=== PATIENT | female | born 1935 | race American Indian/Alaskan Native ===

== ENCOUNTER 2018-04-03 23:27 | Inpatient (IN) | payer MEDICARE, BC ==
--- NOTE | 2018-04-03 23:33 | C.PDOC ---
History Of Present Illness patient was brought in by daughters for seizure activity. Pt has a staring episode-non responsive to verbal commands, and anothe episode sith some "shaking" after which she sustained a small bite to tip of tongue. Patient is confused at baseline due to her dementia. No f/c/n/v. Pleasant, cooperative Time Seen by Provider: 04/03/18 23:32 Chief Complaint (Nursing): Altered Mental Status History Per: Family History/Exam Limitations: None Onset/Duration Of Symptoms: Hrs Onset Of Symptoms: <3 Hours Current Symptoms Are (Timing): Gone Usual Baseline: Alert Confused Exacerbating Factor(s): Other (seizure, dementia) Speech Is: Normal Severity: None Recent travel outside of the [place]: No Additional History Per: Family Associated Symptoms: Seizure. denies: Fever, Chills, Sweating, Falling, Weakness Past Medical History Reviewed: Historical Data, Nursing Documentation, Vital Signs - Medical History PMH: Dementia, HTN, Hypothyroidism, Osteoporosis Denies: Chronic Kidney Disease Family History: States: No Known Family Hx - Social History Hx Tobacco Use: No Hx Alcohol Use: No Hx Substance Use: No - Immunization History Hx Tetanus Toxoid Vaccination: No Hx Influenza Vaccination: No Hx Pneumococcal Vaccination: No Review Of Systems Constitutional: Negative for: Fever, Chills Eyes: Negative for: Vision Change ENT: Negative for: Throat Pain Cardiovascular: Negative for: Chest Pain Respiratory: Negative for: Shortness of Breath Gastrointestinal: Negative for: Nausea, Vomiting, Abdominal Pain Genitourinary: Negative for: Dysuria Musculoskeletal: Negative for: Back Pain Skin: Negative for: Rash Neurological: Positive for: Seizures Psych: Negative for: Anxiety Physical Exam - Physical Exam Appears: Non-toxic, No Acute Distress Skin: Warm, Dry Head: Normacephalic Eye(s): bilateral: Normal Inspection Oral Mucosa: Moist Tongue: Bite (tip. a.2 cm hematoma) Neck: Supple Chest: Symmetrical, Other (cabg scar) Cardiovascular: Rhythm Regular Respiratory: No Rales, No Rhonchi, No Wheezing Gastrointestinal/Abdominal: Soft, No Tenderness, No Distention Back: Normal Inspection Extremity: Normal ROM Extremity: Bilateral: Atraumatic, Normal Color And Temperature, Normal ROM Pulses: Left Dorsalis Pedis: Normal, Right Dorsalis Pedis: Normal Neurological/Psych: Normal Speech, Normal Motor, Other (aaox2) Disoriented To: Place Gait: Steady ED Course And Treatment - Laboratory Results Result Diagrams: 04/04/18 00:19 04/04/18 00:19 ECG: Interpreted By Me, Viewed By Me ECG Rhythm: Sinus Rhythm (64), 1st Degree HB, R BBB, Nonspecific Changes O2 Sat by Pulse Oximetry: 97 Pulse Ox Interpretation: Normal - Radiology CXR: Interpreted by Me, Viewed By Me CXR Interpretation: Yes: Other (cabg). No: Infiltrates, Fracture, Pnemothorax NIHSS Stroke Scale - Date/Time Evaluation Performed Date Performed: 04/03/18 Time Performed: 23:30 When Was NIHSS Performed: Baseline - How Severe is the Stoke Level of Consciousness: 0=Alert LOC to Questions: 0=Both comments correct LOC to commands: 0=Obeys both correctly Best Gaze: 0=Normal Visual: 0=No visual loss Facial: 0=Normal Motor Arm - Left: 0=No drift Motor Arm - Right: 0=No drift Motor Leg - Left: 0=No drift Motor Leg - Right: 0=No drift Limb Ataxia: 0=Absent Sensory: 0=Normal Best Language: 0=No aphasia Dysarthia: 0=Normal articulation Extinction & Inattention (Neglect): 0=Normal, no object Score: [address] Donovan Ponce Comment: accepted the pt on his service and took over the care at 1:38AM Doctor Will See Patient In The: Hospital Counseled Patient/Family Regarding: Studies Performed, Diagnosis - Disposition Disposition: HOSPITALIZED Disposition Time: 23:32 Condition: FAIR Forms: [facility] (Arabic) - POA Present On Arrival: None - Clinical Impression Clinical Impression: New onset seizure, Dementia Decision To Admit - Pt Status Changed To: Hospital Disposition Of: Inpatient - Admit Certification Admit to Inpatient:: After my assessment, the patient will require hospitalization for at least two midnights. This is because of the severity of symptoms shown, intensity of services needed, and/or the medical risk in this patient being treated as an outpatient. - InPatient: Physician Admission Certification:: After my assessment, the patient will require hospitalization for at least two midnights. This is because of the severity of symptoms shown, intensity of services needed, and/or the medical risk in this patient being treated as an outpatient. - . Bed Request Type: Regular Admitting Physician: Donovan Ponce Patient Diagnosis: New onset seizure, Dementia
[2018-04-04 00:25] LABS: BASO # 0.1 K/uL (0.0-0.2); BASO % 0.7 % (0.0-2.0); EOS # 0.1 K/uL (0.0-0.7); EOS % 1.1 % (0.0-4.0); HEMOGLOBIN 11.7 g/dL (11.0-16.0); LYMPH # 3.5 K/uL (1.0-4.3); LYMPH % 34.5 % (20.0-40.0); MEAN CELL VOLUME 89.1 fL (81.0-99.0); MEAN CORPUSCULAR HEMOGLOBIN 29.3 pg (27.0-31.0); MEAN CORPUSCULAR HGB CONC 32.9 g/dL (33.0-37.0); MEAN PLATELET VOLUME 8.3 fL (7.2-11.7); MONO % 9.5 % (0.0-10.0); NEUT # 5.4 K/uL (1.8-7.0); NEUT % 54.2 % (50.0-75.0); RBC 3.98 Mil/uL (3.80-5.20)
[2018-04-04 00:31] LABS: PROTHROMBIN TIME 11.2 SECONDS (9.7-12.2)
[2018-04-04 00:37] LABS: ALB/GLOB RATIO 1.4 (1.0-2.1); ALBUMIN 4.4 g/dL (3.5-5.0); CALCIUM 9.4 mg/dl (8.6-10.4)
[2018-04-04 00:45] LABS: VENOUS BLOOD GAS BASE EXCESS 3.2 mmol/L (0.0-2.0); VENOUS BLOOD GAS PCO2 53 mmHg (40-60); VENOUS BLOOD GAS PO2 32 mm/Hg (30-55); VENOUS BLOOD PH 7.36 (7.32-7.43)
[2018-04-04 06:41] LABS: SQUAMOUS EPITHIAL 1 /hpf (0-5); URINE BACTERIA RARE (<OCC); URINE BILIRUBIN NEGATIVE (NEGATIVE); URINE BLOOD NEGATIVE (NEGATIVE); URINE CLARITY Clear (Clear); URINE COLOR Straw (YELLOW); URINE GLUCOSE (UA) NORMAL (Normal); URINE LEUKOCYTE ESTERASE NEG Leu/uL (Negative); URINE PROTEIN NEGATIVE (NEGATIVE); URINE UROBILINOGEN NORMAL mg/dL (0.2-1.0)
[2018-04-04] MEDS: Dextrose 5%/0.45% NS 1,000 ML IV SCH (06:56)
--- NOTE | 2018-04-04 08:40 | CT ---
Date of service: 04/03/2018 PROCEDURE: CT HEAD WITHOUT CONTRAST. HISTORY: new onset seizure COMPARISON: 06/15/2016 TECHNIQUE: Axial computed tomography images were obtained through the head/brain without intravenous contrast. Radiation dose: Total exam DLP = 1937.69 mGy-cm. This CT exam was performed using one or more of the following dose reduction techniques: Automated exposure control, adjustment of the mA and/or kV according to patient size, and/or use of iterative reconstruction technique. FINDINGS: HEMORRHAGE: No intracranial hemorrhage. BRAIN: No mass effect or edema. Mild diffuse atrophy. Moderate chronic periventricular and deep/subcortical white matter lucency consistent with age related microvascular ischemic change. Old right basal ganglia lacunar infarct. No evidence of acute infarct. VENTRICLES: Unremarkable. No hydrocephalus. CALVARIUM: Unremarkable. PARANASAL SINUSES: Unremarkable as visualized. No significant inflammatory changes. MASTOID AIR CELLS: Unremarkable as visualized. No inflammatory changes. OTHER FINDINGS: None. IMPRESSION: No intracranial mass, hemorrhage or evidence of acute infarct. Chronic microvascular white matter ischemic change. Old right basal ganglia lacunar infarct. No interval change. The preliminary findings for this examination were reported by [facility] Radiology at 12:24 a.m. on 04/04/2018. There is concurrence of this report with the preliminary findings.
--- NOTE | 2018-04-04 09:18 | RAD ---
Date of service: 04/03/2018 HISTORY: SOB COMPARISON: Comparison made with prior chest radiograph dated 03/07/2014.. FINDINGS: LUNGS: No active pulmonary disease. PLEURA: No significant pleural effusion identified, no pneumothorax apparent. CARDIOVASCULAR: Aortic atherosclerotic calcification present. Suspect mitral valve calcification.. Vascular calcifications involving the great vessels seen in the upper mediastinum bilaterally. Mild cardiomegaly. Sternotomy wires and CABG clips again noted. No pulmonary vascular congestion. OSSEOUS STRUCTURES: No significant abnormalities. VISUALIZED UPPER ABDOMEN: Normal. OTHER FINDINGS: None. IMPRESSION: No acute consolidation..
[2018-04-04] MEDS ORDERED: CALCIUM CARBONATE PO SCH (10:00)
[2018-04-04] MEDS ORDERED: LEVOTHYROXINE PO SCH (10:00)
[2018-04-04] MEDS ORDERED: PLAVIX 75 MG PO SCH (10:00)
[2018-04-04] MEDS ORDERED: Home Med 1 UNIT (Simvastatin [Simvastatin] 40 MG) PO SCH (10:00)
[2018-04-04] MEDS ORDERED: VITAMIN D3 PO SCH (10:00)
[2018-04-04] MEDS: Pantoprazole 20 mg EC Tab PO SCH (10:38)
[2018-04-04] MEDS: Levothyroxine 75 MCG TAB PO SCH (11:21)
[2018-04-04] MEDS: Calcium-Vit D 500 mg-200 Units Tab UD PO SCH (11:21)
--- NOTE | 2018-04-04 11:46 | CARD ---
APPROVED REPORT Date of service: 04/04/2018 EKG Measurement Heart [id number] NC 250P24 [id number] <Conclusion> Sinus rhythm with 1st degree AV block Incomplete right bundle branch block Left ventricular hypertrophy with repolarization abnormality Abnormal ECG
[2018-04-04 15:45] VITALS: RESP 20
[2018-04-05] MEDS: Dextrose 5%/0.45% NS 1,000 ML IV SCH ×2 (04:24→18:20)
--- NOTE | 2018-04-05 05:53 | HP ---
HISTORY OF PRESENT ILLNESS: This is an 82-year-old female, who was brought in with a history of possible seizures, she had an episode of 2 to 3 times in the past. She has a history of longstanding hypertension, coronary artery disease, peripheral artery disease, and carotid disease. She was in the usual state of health up until a few days ago when she had 2 or 3 episodes of seizures-like activity and brought in subsequently by the daughter to the emergency room. She bit her tongue once. She had two episodes, [facility]. PERSONAL HISTORY: She does not smoke, does not drink. PAST MEDICAL HISTORY: History of CABG at [facility], admitted for uncontrolled hypertension and unsteady gait in 2016 in [facility], bypass was done in 2013. PTCA of both femoral was done by Dr. Santana in 2010. FAMILY HISTORY: Positive for hypertension, both daughters have it. MEDICATIONS AT HOME: Include Aricept 10 mg one a day, Ecotrin once a day, Plavix 75 mg one a day, multivitamin, Lasix 20 mg one a day, Cozaar 25 mg one a day, memantine 10 mg, metoprolol tartrate 25 mg once a day, Protonix along with Synthroid 75 mcg, and Zocor 40 mg p.o. once a day. ALLERGIES: DENIED. SOCIAL HISTORY: She does not smoke. No drugs. No alcohol. PHYSICAL EXAMINATION: GENERAL: Shows elderly female, who is conscious, alert with periods of occasional confusion in between, but she recognizes me and her daughter, Amy, who is at the bedside. VITAL SIGNS: She is 130 pounds, height is 5 feet 1 inch. Blood pressure is 128/70, heart rate of 68 and regular, and respiratory rate of 14, afebrile. HEENT: Head is normocephalic. Eyes: No pallor, no icterus. NECK: Supple. No thyroid enlargement. No lymphadenopathy. No carotid bruits. LUNGS: Clear to auscultation. HEART: PMI is normal. S1 and S2 are normal. Systolic ejection murmur grade 2/6 in mitral area. ABDOMEN: Soft, nontender. EXTREMITIES: No cyanosis, clubbing, or edema. Distal pulses are intact. NEUROLOGIC: She is awake, alert, and oriented x3. She is aware she is in the hospital. She knows my name. MUSCULOSKELETAL: Arthritis involving the hands. SKIN: Scar of CABG in the mid sternal line. Also, scar of previous surgery in the right leg. PSYCHIATRIC: No evidence of depression at this point. LABORATORY DATA: EKG: Sinus bradycardia, otherwise normal. Routine labs are acceptable. CAT scan of the head was unremarkable. ASSESSMENT: This is an 83-year-old female with history of hypertension, diffuse atherosclerosis, coronary artery bypass grafting, has presented with seizures. PLAN: Plan at this point is to hydrate. Her BUN is 30, and we will get neurological consultation. MRA of the head, may need EEG. Care of plan was explained to the patient's daughter, who is at the bedside. Donovan Ponce MD
[2018-04-05] MEDS: Levothyroxine 75 MCG TAB PO SCH (06:50)
[2018-04-05] MEDS: Pantoprazole 20 mg EC Tab PO SCH (09:20)
[2018-04-05] MEDS: Calcium-Vit D 500 mg-200 Units Tab UD PO SCH (09:21)
--- NOTE | 2018-04-05 12:18 | CP.PCM.PN ---
Subjective - Date & Time of Evaluation Date of Evaluation: 04/05/18 Time of Evaluation: 12:17 - Subjective Subjective: ok.no further bseuizer activities Objective - Vital Signs/Intake and Output Vital Signs (last 24 hours): Temp Pulse Resp BP Pulse Ox 97.8 F 57 L 20 153/61 H 98 04/05/18 08:18 04/05/18 11:13 04/05/18 08:18 04/05/18 11:13 04/05/18 08:18 - Medications Medications: Current Medications Aspirin (Aspirin Chewable) 81 mg PO DAILY [facility] Last Admin: 04/05/18 09:20 Dose: 81 mg Calcium/Vitamin D (Oyster Shell Calcium/Vitamin D 500 Mg-200 Iu) 1 tab PO DAILY [facility] Last Admin: 04/05/18 09:21 Dose: 1 tab Clopidogrel Bisulfate (Plavix) 75 mg PO DAILY [facility] Last Admin: 04/05/18 09:21 Dose: 75 mg Donepezil HCl (Aricept) 10 mg PO DAILY [facility] Last Admin: 04/05/18 09:20 Dose: 10 mg Furosemide (Lasix) 20 mg PO MWF [facility] Last Admin: 04/04/18 10:37 Dose: 20 mg Heparin Sodium (Porcine) (Heparin) 5,000 units SC Q12 [facility] Last Admin: 04/05/18 09:21 Dose: 5,000 units Dextrose/Sodium Chloride (Dextrose 5%/0.45% Ns 1000 Ml) 1,000 mls @ 50 mls/hr IV .Q20H [facility] Last Admin: 04/05/18 04:24 Dose: 50 mls/hr Levothyroxine Sodium (Synthroid) 75 mcg PO DAILY@0630 [facility] Last Admin: 04/05/18 06:50 Dose: 75 mcg Losartan Potassium (Cozaar) 25 mg PO DAILY [facility] Last Admin: 04/05/18 09:20 Dose: 25 mg Memantine (Namenda) 10 mg PO BID [facility] Last Admin: 04/05/18 09:20 Dose: 10 mg Metoprolol Tartrate (Lopressor) 25 mg PO DAILY [facility] Last Admin: 04/05/18 09:20 Dose: 25 mg Pantoprazole Sodium (Protonix Ec Tab) 20 mg PO DAILY [facility] Last Admin: 04/05/18 09:20 Dose: 20 mg Pneumococcal Polyvalent Vaccine (Pneumovax 23 Vaccine) 0.5 ml IM .ONCE ONE Stop: 04/06/18 10:01 Rosuvastatin Calcium (Crestor) 10 mg PO HS [facility] - Labs Labs: 04/04/18 00:19 04/04/18 00:19 PT 11.2 SECONDS (9.7-12.2) 04/04/18 00:19 INR 1.0 04/04/18 00:19 APTT 31 SECONDS (21-34) 04/04/18 00:19 - Constitutional Appears: No Acute Distress - Head Exam Head Exam: NORMOCEPHALIC - Eye Exam Eye Exam: Normal appearance - ENT Exam ENT Exam: Normal Exam - Neck Exam Neck Exam: Normal Inspection - Respiratory Exam Respiratory Exam: Clear to Ausculation Bilateral - Cardiovascular Exam Cardiovascular Exam: REGULAR RHYTHM - GI/Abdominal Exam GI & Abdominal Exam: Soft - Extremities Exam Extremities Exam: absent: Pedal Edema - Neurological Exam Neurological Exam: Alert, Oriented x3 Assessment and Plan - Assessment and Plan (Free Text) Plan: will get eeg.await neuro consult.
[2018-04-05 14:23] LABS: CALCIUM 9.2 mg/dl (8.6-10.4)
--- NOTE | 2018-04-06 05:14 | CON ---
DATE: 04/05/2018 HISTORY OF PRESENT ILLNESS: This is an 83-year-old black female with a past medical history, dementia, hypertension, hypothyroidism, status post CABG, and brought to the hospital with possible seizures, had 2 to 3 episodes in the past, and the patient was called to evaluate, and the patient's daughter is at bedside. PAST MEDICAL HISTORY: Hypertension, hypothyroidism, and seizures. ALLERGIES: NO DRUG ALLERGIES: SOCIAL HISTORY: Does not smoke, does not drink. PHYSICAL EXAMINATION: HEENT: Normocephalic and atraumatic. NECK: Supple. NEUROLOGIC: Awake, oriented to self and place and not to the time. Cranial nerves II through XII were tested. Pupils reactive. EOM intact. Visual field full. No facial asymmetry. Tongue midline. Motor examination: Moves all the extremities equally. Tone normal. Deep tendon reflexes 1+. Both plantars downgoing. Sensory appears intact. Cerebellar gait deferred. IMPRESSION: The patient has dementia and also has seizure. PLAN: We will start her on Keppra 500 mg p.o. daily and continue medication for dementia. We will follow up. Celestine Huston MD
[2018-04-06] MEDS: Levothyroxine 75 MCG TAB PO SCH (05:47)
[2018-04-06 08:00] LABS: BASO # 0.1 K/uL (0.0-0.2); BASO % 0.9 % (0.0-2.0); EOS # 0.2 K/uL (0.0-0.7); EOS % 1.9 % (0.0-4.0); LYMPH # 4.5 K/uL (1.0-4.3); LYMPH % 47.9 % (20.0-40.0); MEAN CELL VOLUME 88.5 fL (81.0-99.0); MEAN CORPUSCULAR HEMOGLOBIN 29.6 pg (27.0-31.0); MEAN CORPUSCULAR HGB CONC 33.4 g/dL (33.0-37.0); MEAN PLATELET VOLUME 8.4 fL (7.2-11.7); MONO # 0.9 K/uL (0.0-0.8); MONO % 9.5 % (0.0-10.0); NEUT # 3.7 K/uL (1.8-7.0); NEUT % 39.8 % (50.0-75.0); NRBC % 0.2 % (0.0-2.0); RBC 3.71 Mil/uL (3.80-5.20); RED CELL DISTRIBUTION WIDTH 15.3 % (11.5-14.5); WHITE BLOOD COUNT 9.4 K/uL (4.8-10.8)
[2018-04-06 08:15] LABS: ALB/GLOB RATIO 1.3 (1.0-2.1); ALBUMIN 3.8 g/dL (3.5-5.0); CALCIUM 8.8 mg/dl (8.6-10.4)
--- NOTE | 2018-04-06 08:59 | CP.PCM.PCO ---
Assessment & Plan - Assessment and Plan (Free Text) Assessment: NEURO COMMUNICATION NOTE: BREAK THROUGH SEZ SEC TO NEURODEGNERATION. EEG SHOWED MILD BCD, NO SEIZURE ACTIVITY. C/W KEPPRA 500MGPO BID. DELIRIUM PRECAUTIONS. F/U OUTPT THANK YOU HORACE MERRITT.
[2018-04-06] MEDS: Calcium-Vit D 500 mg-200 Units Tab UD PO SCH (09:21)
[2018-04-06] MEDS: Pantoprazole 20 mg EC Tab PO SCH (09:21)
[2018-04-06] MEDS ORDERED: Pneumococcal 23-Valent Vaccine IM ONE (10:00)
--- NOTE | 2018-04-06 10:44 | CP.PCM.PN ---
Subjective - Date & Time of Evaluation Date of Evaluation: 04/06/18 Time of Evaluation: 10:42 - Subjective Subjective: feels ok.bp still high.neuro consult jesus. Objective - Vital Signs/Intake and Output Vital Signs (last 24 hours): Temp Pulse Resp BP Pulse Ox 97.7 F 66 20 175/85 H 99 04/06/18 08:00 04/06/18 08:00 04/06/18 08:00 04/06/18 09:21 04/06/18 08:00 Intake and Output: 04/06/18 04/06/18 06:59 18:59 Intake Total 1100 Output Total 150 Balance 950 - Medications Medications: Current Medications Amlodipine Besylate (Norvasc) 5 mg PO DAILY [facility] Last Admin: 04/06/18 09:23 Dose: 5 mg Aspirin (Aspirin Chewable) 81 mg PO DAILY [facility] Last Admin: 04/06/18 09:20 Dose: 81 mg Calcium/Vitamin D (Oyster Shell Calcium/Vitamin D 500 Mg-200 Iu) 1 tab PO DAILY [facility] Last Admin: 04/06/18 09:21 Dose: 1 tab Clopidogrel Bisulfate (Plavix) 75 mg PO DAILY [facility] Last Admin: 04/06/18 09:21 Dose: 75 mg Donepezil HCl (Aricept) 10 mg PO DAILY [facility] Last Admin: 04/06/18 09:21 Dose: 10 mg Furosemide (Lasix) 20 mg PO MWF [facility] Last Admin: 04/06/18 09:21 Dose: 20 mg Heparin Sodium (Porcine) (Heparin) 5,000 units SC Q12 [facility] Last Admin: 04/06/18 09:23 Dose: 5,000 units Dextrose/Sodium Chloride (Dextrose 5%/0.45% Ns 1000 Ml) 1,000 mls @ 50 mls/hr IV .Q20H [facility] Last Admin: 04/05/18 18:20 Dose: 50 mls/hr Levetiracetam (Keppra) 500 mg PO BID [facility] Levothyroxine Sodium (Synthroid) 75 mcg PO DAILY@0630 [facility] Last Admin: 04/06/18 05:47 Dose: 75 mcg Losartan Potassium (Cozaar) 50 mg PO BID [facility] Losartan Potassium (Cozaar) 25 mg PO ONCE ONE Stop: 04/06/18 10:46 Memantine (Namenda) 10 mg PO BID [facility] Last Admin: 04/06/18 09:21 Dose: 10 mg Metoprolol Tartrate (Lopressor) 25 mg PO DAILY [facility] Last Admin: 04/06/18 09:20 Dose: 25 mg Pantoprazole Sodium (Protonix Ec Tab) 20 mg PO DAILY [facility] Last Admin: 04/06/18 09:21 Dose: 20 mg Rosuvastatin Calcium (Crestor) 10 mg PO HS [facility] Last Admin: 04/05/18 21:25 Dose: 10 mg - Labs Labs: 04/06/18 07:44 04/06/18 07:44 PT 11.2 SECONDS (9.7-12.2) 04/04/18 00:19 INR 1.0 04/04/18 00:19 APTT 31 SECONDS (21-34) 04/04/18 00:19 - Constitutional Appears: No Acute Distress - Head Exam Head Exam: NORMOCEPHALIC - Neck Exam Neck Exam: Normal Inspection - Respiratory Exam Respiratory Exam: Clear to Ausculation Bilateral - Cardiovascular Exam Cardiovascular Exam: REGULAR RHYTHM - Extremities Exam Extremities Exam: absent: Pedal Edema - Neurological Exam Neurological Exam: Alert, Oriented x3 Assessment and Plan - Assessment and Plan (Free Text) Plan: will ct kepra.disch after bp control.
[2018-04-06] MEDS: Dextrose 5%/0.45% NS 1,000 ML IV SCH (14:08)
--- NOTE | 2018-04-06 14:41 | CP.PCM.PN ---
Subjective - Date & Time of Evaluation Date of Evaluation: 04/06/18 Time of Evaluation: 14:41 - Subjective Subjective: PATIENT SEEN AND EXAMINED AT THE BEDSIDE Objective - Vital Signs/Intake and Output Vital Signs (last 24 hours): Temp Pulse Resp BP Pulse Ox 97.7 F 66 20 175/85 H 99 04/06/18 08:00 04/06/18 08:00 04/06/18 08:00 04/06/18 09:21 04/06/18 08:00 Intake and Output: 04/06/18 04/06/18 06:59 18:59 Intake Total 1100 640 Output Total 150 Balance 950 640 - Medications Medications: Current Medications Amlodipine Besylate (Norvasc) 5 mg PO DAILY [facility] Last Admin: 04/06/18 09:23 Dose: 5 mg Aspirin (Aspirin Chewable) 81 mg PO DAILY [facility] Last Admin: 04/06/18 09:20 Dose: 81 mg Calcium/Vitamin D (Oyster Shell Calcium/Vitamin D 500 Mg-200 Iu) 1 tab PO DAILY [facility] Last Admin: 04/06/18 09:21 Dose: 1 tab Clopidogrel Bisulfate (Plavix) 75 mg PO DAILY [facility] Last Admin: 04/06/18 09:21 Dose: 75 mg Donepezil HCl (Aricept) 10 mg PO DAILY [facility] Last Admin: 04/06/18 09:21 Dose: 10 mg Furosemide (Lasix) 20 mg PO MWF [facility] Last Admin: 04/06/18 09:21 Dose: 20 mg Heparin Sodium (Porcine) (Heparin) 5,000 units SC Q12 [facility] Last Admin: 04/06/18 09:23 Dose: 5,000 units Dextrose/Sodium Chloride (Dextrose 5%/0.45% Ns 1000 Ml) 1,000 mls @ 50 mls/hr IV .Q20H [facility] Last Admin: 04/06/18 14:08 Dose: 50 mls/hr Levetiracetam (Keppra) 500 mg PO BID [facility] Levothyroxine Sodium (Synthroid) 75 mcg PO DAILY@0630 [facility] Last Admin: 04/06/18 05:47 Dose: 75 mcg Losartan Potassium (Cozaar) 50 mg PO BID [facility] Memantine (Namenda) 10 mg PO BID [facility] Last Admin: 04/06/18 09:21 Dose: 10 mg Metoprolol Tartrate (Lopressor) 25 mg PO DAILY [facility] Last Admin: 04/06/18 09:20 Dose: 25 mg Pantoprazole Sodium (Protonix Ec Tab) 20 mg PO DAILY [facility] Last Admin: 04/06/18 09:21 Dose: 20 mg Rosuvastatin Calcium (Crestor) 10 mg PO HS [facility] Last Admin: 04/05/18 21:25 Dose: 10 mg - Labs Labs: 04/06/18 07:44 04/06/18 07:44 PT 11.2 SECONDS (9.7-12.2) 04/04/18 00:19 INR 1.0 04/04/18 00:19 APTT 31 SECONDS (21-34) 04/04/18 00:19 Assessment and Plan - Assessment and Plan (Free Text) Assessment: FOLLOW UP WITH DR MIGUEL IN HIS OFFICE ----CALL FOR APPOINTMENT FOLLOW UP WITH DR SANCHEZ IN HIS OFFICE -----CALL FOR APPOINTMENT CONTINUE HOME MEDICATION NEW PRESCRIPTION GIVEN KEPPRA 500 MG BY MOUTH TWICE A DAY [place] DOSE INCREASE TO 50 MG BY MOUTH TWICE A DAY NORVASC 5 MG BY MOUTH DAILY [facility]IV[facility] TOLERATED CALL DR MIGUEL OR GO TO THE EMERGENCY ROOM IF SYMPTOM RETURN OR WORSENING
[2018-04-07] MEDS: Levothyroxine 75 MCG TAB PO SCH (06:26)
[2018-04-07 08:31] VITALS: BP 161/69; PULSE 70; TEMP 97.6; O2SAT 97
--- NOTE | 2018-04-07 09:02 | EEG ---
Copied To: Reese Huston MD Attending MD: DATE: CHIEF COMPLAINT: Seizure. CONDITION OF THE RECORDING: Drowsy. DIAGNOSIS: Seizure. MEDICATIONS: Reviewed by nurse's reconciliation sheet. INTERPRETATION: This is a 16-channel international recording. The background activity recording showed 6 to 7 cycles per second. There was a small amount of beta activity of 16 to 20 cycles per second seen in this recording. There was increased amount of theta activity of 5 to 7 cycles per second seen in this recording. Drowsiness was characterized by mixed beta and theta activities. Sleep was characterized by vertex transient waves, sleep spindles, and bilateral slowing. Photic stimulation showed no change in the tracing. No paroxysmal activities noted in this recording activity. CONCLUSION: This is an abnormal electroencephalogram due to presence of mild diffuse slowing consistent with mild bilateral cerebral dysfunction. No evidence of any epileptiform activity. Please clinically correlate. Reese Huston MD
[2018-04-07] MEDS: Calcium-Vit D 500 mg-200 Units Tab UD PO SCH (10:26)
[2018-04-07] MEDS: Pantoprazole 20 mg EC Tab PO SCH (10:27)
--- NOTE | 2018-04-08 00:30 | DS ---
The patient is being discharged today, 04/07/2018. HOSPITALIZATION COURSE: An 83-year-old female with a history of hypertension and previous CABG, who was brought in with a history of possible seizures. The patient was seen and evaluated by Dr. Huston. The patient has already seen him in the past. There was no further severe activity. CAT scan was unremarkable. Routine labs were acceptable. The patient was hydrated. At this point, she is stable. Her blood pressure was somewhat elevated, and Norvasc 5 mg p.o. was added and Cozaar was increased to 50 mg p.o. twice a day. Prescriptions are according to the pharmacy at the time of discharge. Care plan was explained to the patient's daughter, Amy, on the phone. She will have a visiting nurse and physical therapy at home. I will see her back in one week's time. FINAL DIAGNOSES: New seizures. History of hypertension and coronary artery bypass graft. Donovan Ponce MD
== END 2018-04-07 15:04 | disposition home or self-care (01) | DRG 101 ==
LOC: C.ER 23:27 → C.9E 04-04 01:40 → C.5S 04-04 14:17
PROVIDERS: ADMIT Internal Medicine Cardiovascular Disease; ATTEND Internal Medicine Cardiovascular Disease
DX: R56.9 Unspecified convulsions (principal); Z95.1 Presence of aortocoronary bypass graft; M81.0 Age-related osteoporosis without current pathological fracture; I25.10 Atherosclerotic heart disease of native coronary artery without angina pectoris; I10 Essential (primary) hypertension; F03.90 Unspecified dementia, unspecified severity, without behavioral disturbance, psychotic disturbance, mood disturbance, and anxiety; E03.9 Hypothyroidism, unspecified; I73.9 Peripheral vascular disease, unspecified